=== PATIENT | female | born 1975 | race Caucasian/White ===

== ENCOUNTER → 2017-05-26 | Outpatient (CLI) | payer OTHER ==
[~2017-05-26] MED LIST: CELEBREX 200 M200 M1 PO; HYDROCODON-ACE1 EAC5 PO; HYDROCODONE-AP1 EA11 PO; NORCO 5-325 TA1 EACH PO; WELLBUTRIN SR150 MG PO
--- NOTE | 2017-05-27 08:10 | PAINCON ---
[address] [address] PAIN MANAGEMENT CONSULTATION Name: FILOMENA NEGRON [facility] [id number] Admission: 05/26/17 Attend Phys: Migdalia Brower MD Discharge: Date of : 77 Report #: [id number] THIS REPORT FOR: //name// CC: Mario Brower DATE OF SERVICE: 05/26/2017 FOLLOWUP COMPLAINT: Pain medicine is still helpful. I would like to stop smoking. FOLLOWUP HISTORY: The patient is a 42-year-old female who has been followed in the pain clinic because of chronic pain involving her knees as well as her right hip. 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 She works 3:00 p.m. to 11:00 p.m. She notes that this increased workload has increased some of the pain and discomfort she is experiencing. She found that April was quite problematic. There were a lot of activities where she had to move many chairs and clean up after many programs. She feels that Celebrex is helpful. She feels that she would not be able to do this job without use of the hydrocodone. As you recall, we increased her dose at the last visit. She finds that this has been more efficacious. She continues to have pain and rates it as a 9 today. The weather has changed, it is cold and she has noted worsening of pain and discomfort. Has pain in the right knee and in the right hip. She continues to work hard on weight loss. She has lost another pound over the vacation. Overall, she has lost about 100 pounds. She would like to try to decrease her tobacco use. She has tried in the past. Her concern is that she will increase her weight. It is known that folks oftentimes increase weight after cessation of tobacco use. She knows that the tobacco poses possibility of cancer and pulmonary problems in the future. She is trying to debate whether a 20 pound weight gain would be better than continuing to smoke and encounter the possible complications of chronic tobacco use. PHYSICAL EXAMINATION: VITAL SIGNS: Blood pressure 118/58, height 5 feet 2 inches, weight 216 pounds, BMI is 39, temperature 98.3, heart rate 74, respiratory rate 16. HEENT: Unremarkable. NECK: Nontender. CHEST: Clear, but the patient does cough to clearer throat numerous times during the conversation and her respirations are nonlabored. ABDOMEN: Obese, soft. No complaints. EXTREMITIES: Some soreness in the right knee as well [place] [address] PAIN MANAGEMENT CONSULTATION Name: FILOMENA NEGRON [facility] [id number] Admission: 05/26/17 Attend Phys: Migdalia Brower MD Discharge: Date of : 77 Report #: [id number] IMPRESSION: 1. Left knee and hip pain. History of torn meniscus in her knee. 2. 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 3. Postoperative repair of left knee. Continue physical therapy directives. 4. The patient desires to decrease the use of tobacco. RECOMMENDATIONS: We discussed the use of options for tobacco cessation. At this juncture, we will try Wellbutrin 150 mg 1 p.o. every day. She will take the medication as prescribed. She will call us if she has any concerns about the medication. She will stop it if she has any concerns. She will try to decrease her use of tobacco. We would also described just trying to stop without use of medications. She feels that that might not be a successful, therefore, we will proceed with a trial of Wellbutrin. We will also continue with hydrocodone 7.5 mg 1 p.o. b.i.d. 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 A script for 7.5 mg 1 p.o. t.i.d. has been written. The patient will also continue with Celebrex as a nonsteroidal anti-inflammatory medication 200 mg 1 p.o. every day. She will call us if she has any problems. We would like to thank you for letting us participate in her care. Hope, she continues to improve. <ELECTRONICALLY SIGNED> By: Migdalia Brower MD 05/27/17 0810 1005 [id number]. Mauro Brower MD /SHAWN
== END ==
LOC: M.PC 01:33
DX: G89.29 Other chronic pain (principal); M25.561 Pain in right knee; M25.562 Pain in left knee; M25.551 Pain in right hip; Z98.890 Other specified postprocedural states

== ENCOUNTER → 2017-06-23 | Outpatient (CLI) | payer OTHER ==
--- NOTE | 2017-06-29 08:40 | PAINCON ---
[address] [address] PAIN MANAGEMENT CONSULTATION Name: FILOMENA NEGRON Room: [facility] Diane#: [id number] Admission: 06/23/17 Attend Phys: Migdalia Brower MD Discharge: Date of : 77 Report #: [id number] THIS REPORT FOR: //name// CC: Mario Brower DATE OF SERVICE: 06/23/2017 FOLLOWUP COMPLAINT: Here for medication renewal. FOLLOWUP HISTORY: The patient is a 42-year-old female who has been followed in the pain clinic because of chronic pain involving her left knee and hip. She continues to stay active. She has found a new job. 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 At this juncture, she no longer works at that job. She was unable to get move from an evening position to a daytime position. This can be greater than a year and this was just not working well for her and her family. She now has a new job working at the [employer]. This is closing in her town. She does like to work. She does still find that the job is quite taxing. She is on her feet. They are constantly moving things from one place to the next. She feels that with her medication, she is able to continue to be active. She feels that the Wellbutrin medication, which she started on the last month was helpful. She feels that she has cut down about half of her smoking habit. She feels that the Celebrex continues to be helpful as well. Continues to have pain and discomfort, which is down into both knees as well as in her hip. She has noted that the cold weather that we have had has caused some problems as well. She rates her pain as a 7/10 at this juncture. She would like to continue with this medication. ALLERGIES: AMOXICILLIN. CURRENT MEDICATIONS: Celebrex 200 mg 1 p.o. daily, hydrocodone 10/325 one p.o. t.i.d. PHYSICAL EXAMINATION: VITAL SIGNS: Blood pressure 121/67, heart rate 73, respiratory rate 16, room air saturation 96%. Height 5 feet 2 inches, weight 216 pounds, BMI is 39.6, temperature 98.3. HEENT: Head is atraumatic. Eyes: Equal, round and reactive. Buccal membrane moist. NECK: Without adenopathy or JVD. LUNGS: Clear to auscultation. HEART: Regular rate, normal S1, S2. ABDOMEN: Nontender. MUSCULOSKELETAL: The patient has some pain and discomfort involving her knee on the right side as well as some pain and [place] [address] PAIN MANAGEMENT CONSULTATION Name: FILOMENA NEGRON Room: [facility]#: [id number] Admission: 06/23/17 Attend Phys: Migdalia Brower MD Discharge: Date of : 77 Report #: [id number] IMPRESSION: 1. Left hip and knee pain, which is chronic, history of torn meniscus in her knee. 2. 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 This was secondary to her inability to get to a day shift job. 3. Decreasing use of tobacco with Wellbutrin. She has had no side effects from this, but feels that this has decreased her desire for tobacco. 4. Postoperative repair of knee, continue physical therapy. 5. Depressive disorder, asthma and bronchitis history. RECOMMENDATIONS: We discussed treatment options with the patient. The patient will call us if she has any problems with her medications. A script for 2 months of hydrocodone as well as Wellbutrin have been written. The patient will also continue with Celebrex. She will stop this medication if she notes any GI problems. We would like to thank you for letting us participate in her care. We hope she continues to improve. <ELECTRONICALLY SIGNED> By: Migdalia Brower MD 06/29/17 0840 1421 [id number]. Mauro Brower MD /SHAWN
== END ==
LOC: M.PC 01:43
DX: G89.29 Other chronic pain (principal); M25.562 Pain in left knee; M25.552 Pain in left hip; F17.200 Nicotine dependence, unspecified, uncomplicated; F32.9 Major depressive disorder, single episode, unspecified; Z98.890 Other specified postprocedural states; Z87.09 Personal history of other diseases of the respiratory system

== ENCOUNTER → 2017-11-10 | Outpatient (CLI) | payer OTHER ==
--- NOTE | 2017-11-24 15:18 | PAINCON ---
[address] [address] PAIN MANAGEMENT CONSULTATION Name: FILOMENA NEGRON Room: [facility] Contreras#: [id number] Admission: 11/10/17 Attend Phys: Migdalia Brower MD Discharge: Date of : 77 Report #: [id number] THIS REPORT FOR: //name// CC: Mario Brower DATE OF SERVICE: 11/10/2017 FOLLOWUP COMPLAINT: Here for medication renewal, going on a trip vacation at this point, wondering if I could get a few more pain pills for this month. FOLLOWUP HISTORY: The patient is a 42-year-old female who has been followed in the pain clinic. As you recall, she has problems with her knees. At her young age, her surgeons have requested that she wait until she is about 51 before considering surgery on her knees. Left side is worse than right. Also, has bilateral hip pain. She recently fell. She felt like her knee gave out. It sometimes locks up on the left side. Foot feels that her medications are continued to be helpful. 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 She feels overall that things have gone as well as one could expect. She had no complications with her medications. Feels that the medications continue to be helpful. Feels that her sensorium is clear. Rates her pain as a 7/10 today. Feels that Wellbutrin and ibuprofen are helpful. She continues to try to cut down on cigarette smoking and is at 1-1/2 pack per day. ALLERGIES: PENICILLIN. CURRENT MEDICATIONS: Celebrex 200 mg daily, hydrocodone 10/325 one p.o. t.i.d., Wellbutrin 150 mg daily. PAIN CLINIC ASSESSMENT: 1. Osteoarthritis. The patient has osteoarthritis involving her knees as well as in her hip. 2. Height 5 feet 3 inches, weight 217 pounds, BMI is 38. 3. Vital signs: Blood pressure 120/81, heart rate 70, respiratory rate 16, room air saturation 97%, temperature 98.2. Pain intensity 12/06. 4. Fall history: The patient recently fell secondary to her knee giving out. 5. Blood thinners. The patient is not on a blood thinning medication. 6. Hypertension. The patient is not being treated for hypertension. 7. Opioids, greater than 6 weeks. The patient is on an opioid contract with the pain clinic gets her [facility]. 8. Risk assessment tool. 9. Functional assessment tool. 10. Recreational drug use. The patient denies use of recreational drugs. 11. Tobacco: The patient smokes 1-1/2 pack of cigarettes per day. 12. Alcohol: The patient [place] [address] PAIN MANAGEMENT CONSULTATION Name: FILOMENA NEGRON Room: [facility]#: [id number] Admission: 11/10/17 Attend Phys: iMgdalia Brower MD Discharge: Date of : 77 Report #: [id number] PHYSICAL EXAMINATION: GENERAL: The patient is a well-developed, well-nourished white female. Appears her stated age. She is alert and oriented x 3. HEENT: Sclerae nonicteric. Hearing within normal limits. NECK: Without JVD, bruits or adenopathy. LUNGS: Clear to auscultation without crackles or rales. ABDOMEN: Protuberant. MUSCULOSKELETAL: General without significant scoliosis, kyphosis or lordosis. Upper muscle strength is judged to be 5/5 for the major muscle groups of the upper extremity without sensory changes. LOWER EXTREMITY: The patient has pain and discomfort in her left and right knee. Also, has pain and discomfort in her hip. Muscle strength is judged to be 5/5. IMPRESSION: 1. Chronic right and left knee pain. 2. Bilateral hip pain. 3. Use of tobacco. The patient states that with her Wellbutrin she continues to try and decrease her use of tobacco. 4. Depression. 5. Asthma and bronchitis history. RECOMMENDATIONS: We discussed treatment options with the patient. Risks and benefits of opioid therapy and Wellbutrin in conjunction with ibuprofen continue to be helpful. She would like to continue with her current medication regimen. She states that she is about to go on vacation for a while. She is wondering if she could have an additional number of hydrocodone medications to help compensate for pain and discomfort with an additional walking and activity she will incur. She is aware that we will do this for just 1 month. We have written for the patient 120 mg of hydrocodone 10/125 for this month. She will take them 1 q.4-6 hours p.r.n. for pain. We will continue to allow her use of tobacco. We would like to thank you for letting us participate in her care. We hope she continues to improve. <ELECTRONICALLY SIGNED> By: Migdalia Brower MD 11/24/17 1518 0831 [id number]. Mauro Brower MD /nt
== END ==
LOC: M.PC 01:03
DX: M25.562 Pain in left knee (principal); M25.561 Pain in right knee; G89.29 Other chronic pain; M25.552 Pain in left hip; M25.551 Pain in right hip; F32.9 Major depressive disorder, single episode, unspecified; F17.200 Nicotine dependence, unspecified, uncomplicated

== ENCOUNTER → 2018-01-05 | Outpatient (CLI) | payer OTHER ==
--- NOTE | 2018-01-13 08:37 | PAINCON ---
[facility] [address] [place] [address] PAIN MANAGEMENT CONSULTATION Name: FILOMENA NEGRON Room: [facility] Diane#: [id number] Admission: 01/05/18 Attend Phys: Migdalia Brower MD Discharge: Date of : 77 Report #: [id number] THIS REPORT FOR: //name// CC: Mario Brower DATE OF SERVICE: 01/05/2018 FOLLOWUP COMPLAINT: Here for medication renewal. My trip to [place], [place], was really good." FOLLOWUP HISTORY: The patient is a 42-year-old female who has been followed in the pain clinic because of chronic problems. As you recall, she has knee problems. She and her family went on a journey with her holiness. They went to [place]. 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 This was house of a performing artist who had many travels. They were able to accomplish her goal. She feels that things went really well. The increase hydrocodone for that one month was quite beneficial. She has continued to have pain in her knees, right greater than left. Also, notes some right hip pain. Finds that her medications are tolerable. She has had no complications from the use of her medications. 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 Overall, things are going reasonably well and she would like to continue with her medications. Continues to try to decrease her smoking. ALLERGIES: PENICILLIN. CURRENT MEDICATIONS: Celebrex 200 mg daily, hydrocodone 10/325 one p.o. t.i.d. and Wellbutrin 150 mg daily. PAIN CLINIC ASSESSMENT: 1. Osteoarthritis.: The patient has osteoarthritis involving her knees as well as her hip. 2. Height 5 feet 3 inches, weight 270 pounds, BMI is 39. 3. Vital signs: Blood pressure 134/75, heart rate 78, respiratory rate 16, room air saturation 96% and temperature 98.1. 4. Pain intensity score 6/10. 5. Fall risk. The patient has not fallen in the last month. 6. Blood thinner. The patient is not on a blood thinning medication. 7. History of hypertension. The patient is not being treated for hypertension. 8. Opioid therapy greater than 6 weeks. The patient receives her medications from [facility], the pain clinic. 9. Assessment tool, low for opioid use. 10. Functional assessment tool. 11. Recreational drug use. The patient denies use of recreational drugs. 12. Tobacco: The patient denies use of tobacco. 13. Alcohol: The patient [place] [address] PAIN MANAGEMENT CONSULTATION Name: MIGDALIAFILOMENA GALLAGHER Room: [facility]#: [id number] Admission: 01/05/18 Attend Phys: Migdalia Brower MD Discharge: Date of : 77 Report #: [id number] PHYSICAL EXAMINATION: GENERAL: The patient is a well-developed, well-nourished white female. Slightly obese. She appears her stated age. She is alert and oriented x 3. HEENT: Normocephalic, atraumatic. Extraocular eye muscles intact. Sclerae nonicteric. Hearing is within normal limits. Mucous membranes are moist. NECK: Without JVD, bruits, or adenopathy. LUNGS: Clear to auscultation without crackles, some congestion. ABDOMEN: Protuberant without adenopathy or organomegaly. MUSCULOSKELETAL: Generally without significant scoliosis, kyphosis or lordosis. Upper muscle strength is judged to be 5/5 with symmetry. No sensory changes are noted. Low back generally unremarkable. Lower extremities, the patient has pain and discomfort in her knees, left and right as well as in her right hip. Her muscle strength is 5/5. Note some increased discomfort when prolonged standing and walking. IMPRESSION: 1. Chronic right and left knee pain. 2. Chronic bilateral hip pain. 4. Use of tobacco. The patient continues with Wellbutrin and tries to decrease her tobacco use. 5. Depression. 6. Asthma/bronchitis history. RECOMMENDATIONS: We discussed treatment options with the patient. She finds her medications are helpful. She would like to continue with their use. She is aware that opioid use on a long-term basis can cause addiction in some patients. Also, prolonged use of medication can cause decreased effectiveness secondary to development of tolerance. She would like to have her medications renewed. Notes that continues to have greater than 50% improvement with use of her medications. A script for her medications of hydrocodone 10/325 has been written, Wellbutrin 150 mg, Celebrex, have all been provided for the patient for the next 2 months. We would like to thank you for letting us participate in her care. We hope she continues to improve. <ELECTRONICALLY SIGNED> By: Migdalia Brower MD 01/13/18 0837 0841 [id number]. Mauro Brower MD /kelvin
== END ==
LOC: M.PC 03:26
DX: M25.561 Pain in right knee (principal); M25.562 Pain in left knee; G89.29 Other chronic pain; M25.551 Pain in right hip; M25.552 Pain in left hip; J45.909 Unspecified asthma, uncomplicated; F32.9 Major depressive disorder, single episode, unspecified; F17.200 Nicotine dependence, unspecified, uncomplicated; Z79.899 Other long term (current) drug therapy

== ENCOUNTER → 2018-03-02 | Outpatient (CLI) | payer OTHER ==
--- NOTE | 2018-04-12 15:49 | PAINCON ---
[facility] [address] [place] [address] PAIN MANAGEMENT CONSULTATION Name: FILOMENA NEGRON Room: [facility] MichelleArgentinaSuzannaArgentina#: [id number] Admission: 03/02/18 Attend Phys: Migdalia Brower MD Discharge: Date of : 77 Report #: [id number] THIS REPORT FOR: //name// CC: Sterling Brower DATE OF SERVICE: 03/02/2018 FOLLOWUP COMPLAINT: Here for medication renewal. FOLLOWUP HISTORY: The patient is a 42-year-old female who has been followed in the Pain Clinic. As you recall, she has continued to have some pain and discomfort with her knees. She returns today for renewal of her medications. The patient notes that the right knee is more problematic than the left. Also, has some pain in her right hip. She is experiencing pain in her right foot, which has caused her to limp. Rates her pain as an 8/10. Notes that her pain is exacerbated with "temperatures." Medication can be beneficial. Has not fallen or had any new complaints since we saw her last. The patient was walking in the dark. She stepped and go for catherine and stressed her right ankle. A script for the patient's hydrocodone, Wellbutrin and Celebrex have been written. ALLERGIES: PENICILLIN. CURRENT MEDICATIONS: Celebrex 200 mg, hydrocodone 10/325 one p.o. t.i.d. and Wellbutrin 150 mg daily. PAIN CLINIC ASSESSMENT/PQRS: 1. Osteoarthritis. The patient has osteoarthritis involving her knees as well as her hip. 2. Height 5 feet 3 inches, weight 216 pounds, BMI is 39. 3. Vital signs: Blood pressure 142/83, heart rate 61, respiratory rate 16, room air saturation 98%. 4. Pain intensity score is 8/10. 5. Fall risk. The patient has not fallen in the last month. 6. Blood thinner. The patient is not on a blood thinning medication. 7. History of hypertension. The patient is not being treated for hypertension. 8. Opioid therapy greater than 6 weeks. The [facility]. 9. Risk assessment tool, low for opioid use. 10. Functional assessment tool. 11. Recreational drug use. The patient denies use of recreational drugs. 12. Tobacco: The patient denies use of tobacco. 13. Alcohol: The patient denies use of alcoholic beverages on a regular basis. PHYSICAL EXAMINATION: GENERAL: The patient is a well-developed, well-[place] [address] PAIN MANAGEMENT CONSULTATION Name: MIGDALIAFILOMENA Alyson Room: [facility]#: [id number] Admission: 03/02/18 Attend Phys: Migdalia Brower MD Discharge: Date of : 77 Report #: [id number] stated age. Slightly obese. She is alert and oriented x 3. HEENT: Normocephalic, atraumatic. Extraocular eye muscles intact. Sclerae nonicteric. Hearing is within normal limits. Mucous membranes are moist. NECK: Without JVD or bruits. No adenopathy. LUNGS: Clear to auscultation without crackles or congestion. ABDOMEN: Protuberant without adenopathy or organomegaly. Bowel sounds present. MUSCULOSKELETAL: Generally without significant scoliosis, kyphosis or lordosis. Upper extremity muscle strength appears to be 5/5 with symmetry. No sensory changes. Lower back is slightly painful. Lower extremity, the patient has some pain and discomfort in her knees bilaterally, left greater than right. The patient has some right hip discomfort. Muscle strength judged to be 5/5 for the major muscle groups. The patient has walked with a slight limp involving her right foot. IMPRESSION: 1. Chronic right knee and left knee pain. 2. Chronic bilateral hip pain. 3. Use of tobacco. The patient continues to work toward decreasing tobacco use. 4. Depression. 5. Asthma/bronchitis history. RECOMMENDATIONS: We discussed treatment options with the patient. Risks and benefits of opioid medication were discussed. Possible complications of long-term use have been reviewed. They include dependence as well as the possibility of tolerance with prolonged use. The patient feels that these medications were helpful. They enable her to continue to work and be gainfully employed. She will call us if she has any concerns. We would like to thank you for letting us participate in her care. The patient will follow up in 2 months. <ELECTRONICALLY SIGNED> By: Migdalia Brower MD 04/12/18 1549 [id number]. Mauro Brower MD /kelvin
== END ==
LOC: M.PC 04:49
DX: M25.561 Pain in right knee (principal); M25.562 Pain in left knee

== ENCOUNTER → 2018-06-20 | Outpatient (CLI) | payer OTHER ==
--- NOTE | ~2018-06-20 | PAINCON ---
[facility] [address] [place] [address] PAIN MANAGEMENT CONSULTATION Name: FILOMENA NEGRON Room: [facility] MichelleSuzannaArgentina#: [id number] Admission: 06/20/18 Attend Phys: Migdalia Brower MD Discharge: Date of : 77 Report #: [id number] THIS REPORT FOR: //name// CC: Sterling White DO, RESIDENT Najma Brower DATE OF SERVICE: 06/20/2018 CHIEF COMPLAINT: Here for medication renewal, " I have stress fracture in my foot and plantar fasciitis on the right side." HISTORY: The patient is a 43-year-old female who has been followed in the Pain Clinic. As you recall, she has problems with her knees. She has had more pain and discomfort involving her right foot. States that she has been walking with a limp that involves in her right foot. Has been found to have a stress fracture or possible plantar fasciitis. She and her family have moved. Continues to work on a daily basis. Works on a hard surface. Feels that, that exacerbates her pain. She has not fallen in the last 3 months. She feels that her medications of hydrocodone continued to be beneficial. She is able to stay gainfully employed. MEDICATIONS: Celebrex 200 mg, hydrocodone 10/325 one p.o. t.i.d., and Wellbutrin 150 mg daily. PAIN CLINIC ASSESSMENT/PQRS: 1. Osteoarthritis. The patient has some arthritic changes involving her knees as well as her hip. The patient is not being treated for rheumatoid arthritis. 2. Height 5 feet 3 inches, weight 227 pounds, BMI is 41.5. 3. Vital signs: Blood pressure 126/80, heart rate 72, respiratory rate 16, room air saturation 97%, and temperature 98.1. 4. Pain intensity 8/10. 5. Fall history: The patient has not fallen in the last 3 months. 6. Blood thinner. The patient is not on a blood thinner medication. 7. Hypertension. The patient is not being treated for hypertension. 8. Opioids greater than 6 weeks. The patient receives her medications [facility]. 9. Risk assessment tool, low for opioid use. 10. Functional assessment tool. 11. Recreational drug use. The patient denies use of recreational drugs. 12. Tobacco: The patient smokes one-half pack of cigarettes per day. 13. Alcohol: The patient denies use of alcoholic beverages on a regular basis. PHYSICAL EXAMINATION: GENERAL: The patient is a well-developed, well-nourished, somewhat obese white female, appears her stated age. She is alert and oriented x 3[place] [address] PAIN MANAGEMENT CONSULTATION Name: FILOMENA NEGRON Room: [facility]#: [id number] Admission: 06/20/18 Attend Phys: Migdalia Brower MD Discharge: Date of : 77 Report #: [id number] appropriate. Speech is fluent. HEENT: Normocephalic, atraumatic. Extraocular eye muscles intact. Sclerae nonicteric. Mucous membranes are moist. Hearing is within normal limits. NECK: Without adenopathy or JVD. LUNGS: Clear to auscultation without rhonchi or rales. ABDOMEN: Protuberant without organomegaly. Bowel sounds are present. EXTREMITIES: Upper extremity muscle strength 5/5. The patient has pain in her knees bilaterally. Notes some pain and discomfort in the right ankle. Has pain in the plantar area of her right foot. She has clinical findings consistent with plantar fasciitis. The patient does walk with a limp involving her right foot. IMPRESSION: 1. Chronic right knee and left knee pain. 2. Chronic bilateral hip pain. 3. Plantar fasciitis/right foot stress sprain. 4. Depression. 5. Asthma/bronchitis history. RECOMMENDATIONS: We discussed treatment options with the patient. At this juncture, we will continue with her medications. She feels her medications are helpful. She is able to remain gainfully employed because of this. She is going through of the tougher times of the year for them. 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 Because of this increased activity, she would like to have her hydrocodone increased to 4 tablets daily. We will do for this month. She will follow up in the future as needed. She will call us if she has any concerns. We would like to thank you for letting us participate in her care. We hope she continues to improve. By: [id number]. Mauro Brower MD /nt
== END ==
LOC: M.PC 04-27 03:46
DX: M25.562 Pain in left knee (principal); M25.561 Pain in right knee; G89.29 Other chronic pain; M25.551 Pain in right hip; M25.552 Pain in left hip; F32.9 Major depressive disorder, single episode, unspecified; J45.909 Unspecified asthma, uncomplicated; M72.2 Plantar fascial fibromatosis

== ENCOUNTER → 2018-08-15 | Outpatient (CLI) | payer OTHER ==
--- NOTE | ~2018-08-15 | PAINCON ---
[address] [address] PAIN MANAGEMENT CONSULTATION Name: FILOMENA NEGRON Room: [facility] MichelleRadha#: [id number] Admission: 08/15/18 Attend Phys: Migdalia Brower MD Discharge: Date of : 77 Report #: [id number] THIS REPORT FOR: //name// CC: Sterling Brower DATE OF SERVICE: 08/15/2018 CHIEF COMPLAINT: Here for medication renewal. HISTORY: Still having left foot pain, because of plantar fasciitis and left knee pain. HISTORY OF PRESENT ILLNESS: The patient is a 43-year-old female who has been followed in the pain clinic because of chronic pain. Has right foot pain as well as left knee pain. The patient is continuing in physical therapy for treatment of plantar fasciitis. Overall, she has had no significant change in her pain. Continues to find that the pain is problematic and rates it as a 7/10. She has recently been plagued with bronchitis. She has had a right ear infection as well as the sinus infection. She is continuing to decrease her cigarette use. She is at one-half a pack per day at this juncture. States that she will go down to about one-third of a pack per day in the next few weeks. She feels that the Wellbutrin is helping. She has had no complications from her medications. Notes that the cold, temperatures, walking, sitting and standing are problematic. Noticed increased pain during the holiday. She works in a [employer] office. Next time another cedillo will come will be for graduation. 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 ALLERGIES: AMOXICILLIN. CURRENT MEDICATIONS: Celebrex 200 mg, hydrocodone 10/325 one p.o. t.i.d., Wellbutrin 150 mg daily. PAIN CLINIC ASSESSMENT/PQRS: 1. Osteoarthritis. The patient does have some osteoarthritic changes in her knees as well as her hip. Left knee is most problematic. The patient is not being treated for rheumatoid arthritis. 2. Height 5 feet 3 inches, weight 232 pounds, BMI is 41.3. 3. Vital signs: Blood pressure 137/88, heart rate 76, respiratory rate 16, room air saturation is 97%, temperature 98.1. 4. Pain intensity 7/10. 5. Fall risk: The patient did fall. States that it was because she is clumsy. States that she has tripped and because of the weakness in her knees, she was unable to stay up and fell. 6. She did not seek medical attention [place] [address] PAIN MANAGEMENT CONSULTATION Name: FILOMENA NEGRON Room: [facility]#: [id number] Admission: 08/15/18 Attend Phys: Migdalia Brower MD Discharge: Date of : 77 Report #: [id number] 7. Blood thinner. The patient is not on a blood thinning medication. 8. Hypertension. The patient is not being treated for hypertension. 9. Opioid greater than 6 weeks. The patient [facility] her [facility]. 10. Risk assessment tool low for opioid use. 11. Functional assessment tool. 12. Recreational drug use. The patient denies use of recreational drugs. 13. Tobacco: The patient smokes and continues to decrease her smoking. She is a one-half pack of cigarettes per day and now is going to transition to one-third a pack of cigarettes per day. 14. Alcohol: The patient denies use of alcoholic beverages on a regular basis. PHYSICAL EXAMINATION: GENERAL: The patient is a well-developed, well-nourished white female. Appears her stated age. She is alert and oriented x 3. Her affect is appropriate. Speech is fluent. HEENT: Normocephalic, atraumatic. Extraocular eye muscles intact. Sclerae nonicteric. Mucous membranes are moist. NECK: Without adenopathy or JVD. HEART: Regular rate. ABDOMEN: Nontender. Bowel sounds present. EXTREMITIES: Upper extremity muscle strength is judged to be 5/5 for the major muscle groups. Lower extremity muscle strength is judged to be 5-/5 for the lower extremity. Has pain in her left and right knee. Has some discomfort in the right foot as a result of plantar fasciitis. Walks with a slight antalgic gait initially when walking because of the plantar fasciitis pain. IMPRESSION: 1. Chronic right knee and left knee pain. 2. Chronic bilateral hip pain. 3. Plantar fasciitis, right foot. 4. Depression. 5. Asthma/bronchitis. RECOMMENDATIONS: We discussed treatment options with the patient. We will continue with her current medical regimen. A script for her medications of hydrocodone and Celebrex have been rewritten. The patient will also continue with Celebrex. She feels that this medication is providing benefit in helping her decrease her use of tobacco. She has had no complications from her medications. A script for the medication have been renewed. The patient will follow up in [address] [address] PAIN MANAGEMENT CONSULTATION Name: FILOMENA NEGRON Room: [facility]#: [id number] Admission: 08/15/18 Attend Phys: Migdalia Brower MD Discharge: Date of : 77 Report #: [id number] We would like to thank you for letting us participate in her care. We hope she continues to improve. By: [id number]. Mauro Brower MD /nt
== END ==
LOC: M.PC 04:56
DX: M72.2 Plantar fascial fibromatosis (principal); M17.0 Bilateral primary osteoarthritis of knee; M16.0 Bilateral primary osteoarthritis of hip; G89.29 Other chronic pain; J45.21 Mild intermittent asthma with (acute) exacerbation; F17.210 Nicotine dependence, cigarettes, uncomplicated; F32.9 Major depressive disorder, single episode, unspecified; Z88.1 Allergy status to other antibiotic agents; Z79.899 Other long term (current) drug therapy; Z79.891 Long term (current) use of opiate analgesic

== ENCOUNTER → 2018-10-24 | Outpatient (CLI) | payer OTHER ==
--- NOTE | 2018-10-26 01:33 | PAINCON ---
[address] [address] PAIN MANAGEMENT CONSULTATION Name: FILOMENA NEGRON Room: [facility].#: [id number] Admission: 10/24/18 Attend Phys: Migdalia Brower MD Discharge: Date of : 77 Report #: [id number] THIS REPORT FOR: //name// CC: Sterling Brower DATE OF SERVICE: 10/24/2018 CHIEF COMPLAINT: "Here for medication renewal and I am still having [id number] pain in my knee." HISTORY: The patient is a 43-year-old female who has been seen in the Pain Clinic in the past because of chronic pain involving her left knee. She also has some right foot pain. She needs to have a left knee replacement. Her physicians have told her she is too young. She also has some pain in the foot. She suffered from plantar fasciitis. She continues to have pain on the right foot. She has been hospitalized in the past few weeks because of bronchitis. She has run out of her medications and has returned for medication renewal today. She rates her pain as a 7/10. She feels that the [place], Wellbutrin, and Celebrex medications are helpful. They provide about 50% improvement in her pain score overall. She continues to smoke cigarettes and smokes about one-quarter pack of cigarettes per day. ALLERGIES: AMOXICILLIN. CURRENT MEDICATIONS: Celebrex 200 mg, hydrocodone 10/325 one p.o. t.i.d., Wellbutrin 150 mg daily. PAIN CLINIC ASSESSMENT AND PQRS: 1. Osteoarthritis: The patient has osteoarthritic changes involving her knees, particularly her left knee is problematic. She has some pain in her hip. She is not being treated for rheumatoid arthritis. 2. Height 5 feet 3 inches, weight 232 pounds, BMI is 40.9. 3. Vital signs: Blood pressure 138/96, heart rate 69, respiratory rate 16, room air saturation 98%, temperature 98.3. 4. Pain intensity: 7/10. 5. Fall history: The patient has not fallen in the last 3 months. 6. Blood thinner: The patient is not on a blood thinning medication. 7. Hypertension: The patient is not being treated for hypertension. 8. Opioids greater than 6 weeks: The patient receives her medication [facility]. 9. Risk assessment tool: Low for opioid use. 10. Functional assessment tool. 11. Recreational drug use: The patient denies use of recreational drugs. 12. Tobacco: The patient smokes cigarettes and has continued to smoke. We have discussed the benefits of smoking cessation. [place] [address] PAIN MANAGEMENT CONSULTATION Name: FILOMENA NEGRON Room: [facility]#: [id number] Admission: 10/24/18 Attend Phys: Migdalia Brower MD Discharge: Date of : 77 Report #: [id number] one-half pack of cigarettes per day to one-quarter pack of cigarettes per day. 13. Alcohol: The patient denies use of alcoholic beverages on a regular basis. PHYSICAL EXAMINATION: GENERAL: The patient is a well-developed, well-nourished, white female, slightly obese. She appears her stated age. She is alert and oriented x 3. Her affect is appropriate. Speech is fluent. HEENT: Normocephalic, atraumatic. Extraocular eye muscles intact. Sclerae nonicteric. Mucous membranes are moist. NECK: Without adenopathy or JVD. HEART: Regular rate, S1 and S2. ABDOMEN: Nontender. Bowel sounds present. MUSCULOSKELETAL: Upper extremity muscle strength is judged to be 5/5 for the major muscle groups. The patient has some decreased strength in the lower extremity with pain rated at 5/5 for the left lower extremity. She has some pain in the right knee as well. She notes some discomfort in her right foot because of continued plantar fasciitis. The patient continues to walk slowly with a cautious gait. IMPRESSION: 1. Chronic right knee and left knee pain. 2. Chronic bilateral hip pain. 3. Plantar fasciitis, right foot. 4. Depression. 5. Asthma/bronchitis. RECOMMENDATIONS: We discussed treatment options with the patient. The patient has been in the hospital because of bronchitis. Again, we discussed the benefits of smoking cessation. She was on an elevated amount of [place] 10/325, a total of 120 for a month. This was while she was having surgery on her foot. We have now reestablished the patient's norm of 10/325 one p.o. t.i.d., a total of 90 tablets. A total of 2 months of medications have been provided. The patient will also continue with her Wellbutrin 1 tablet daily 150 mg as well as Celebrex 200 mg a day. She does not have any problems with her stomach. Things are going reasonably well with her and her sons. Her youngest son is thinking about going to the , he would like to become a marine. Her oldest son is in the army. Overall, things are going reasonably well. She will call us if she has any concerns. We did discuss the reasons for prolonging as long as possible with the replacement of her knees. Discussed the possibility of the knee replacement wearing out before we would like it to because of her young and active age. <ELECTRONICALLY SIGNED> By: Migdalia Brower MD 10/26/18 [id number]. Mauro Brower MD /nt
== END ==
LOC: M.PC 04:54
DX: M72.2 Plantar fascial fibromatosis (principal); G89.29 Other chronic pain; M25.562 Pain in left knee; M25.561 Pain in right knee; M25.551 Pain in right hip; M25.552 Pain in left hip; F32.9 Major depressive disorder, single episode, unspecified; J45.909 Unspecified asthma, uncomplicated; Z79.899 Other long term (current) drug therapy

== ENCOUNTER → 2018-12-19 | Outpatient (CLI) | payer OTHER ==
--- NOTE | ~2018-12-19 | PAINCON ---
[address] [address] PAIN MANAGEMENT CONSULTATION Name: FILOMENA NEGRON [facility] [id number] Admission: 12/19/18 Attend Phys: Migdalia Brower MD Discharge: Date of : 77 Report #: [id number] THIS REPORT FOR: //name// CC: Sterling White DO, RESIDENT Migdalia Brower DATE OF SERVICE: 12/19/2018 CHIEF COMPLAINT: Chronic knee pain and has been told that I have 3 herniated disks in my back. HISTORY: The patient is a 43-year-old female who has been followed in the Pain Clinic because of chronic pain. As you recall, she has some left knee problems. She has found that the current medical regimen is helpful. She is still having problem with jojb-wi-shat pain. She has had right foot discomfort as well. She needs to have a left knee replacement. Because of her young age, she has not undergone surgery at this point. She has had plantar fasciitis. She now has some problems with her back. She did trip and fell. She went to the hospital. She states that she has been diagnosed with 3 herniated disks in her back. She has a family member who is a physical therapist. They have given her exercises to work on her core. The hope is that she continued to improve and not have need for back surgery. She is continuing to work at her job. 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 The activity at the [facility] is slow at this point. Overall, things are going reasonably well. She rates her pain as a 6/10. She has returned today for renewal of her medication. Continues to try to decrease smoking. Notes that her pain increases with activity, sitting and standing. ALLERGIES: AMOXICILLIN. CURRENT MEDICATIONS: Celebrex 200 mg, hydrocodone 10/325 one p.o. t.i.d., Wellbutrin 150 mg daily. PAIN CLINIC ASSESSMENT/PQRS: 1. Osteoarthritis. The patient has osteoarthritic changes involving her knees, particularly left knee, which is most problematic. Has some problem in her hip. She is not being treated for rheumatoid arthritis. 2. Height 5 feet 3, weight 235 pounds, BMI is 41.8. 3. Vital Signs: Blood pressure 148/82, heart rate 75, respiratory rate 16, room air saturation 95%, temperature is 98.2. 4. Pain intensity, 6/10. 5. Fall history: The patient did fall and went to the Emergency Room. 6. Blood thinner. The patient is not on a blood thinning medication. 7. Hypertension. The patient is not being treated for hypertension. 8. Opioids greater than 6 weeks. The patient [facility] [place] [address] PAIN MANAGEMENT CONSULTATION Name: FILOMENA NEGRON Room: [facility]#: [id number] Admission: 12/19/18 Attend Phys: Migdalia Brower MD Discharge: Date of : 77 Report #: [id number] 9. Risk assessment tool, low for opioid use. 10. Functional assessment tool. 11. Recreational drug use. The patient denies use of recreational drugs. 12. Tobacco: The patient smokes cigarettes 1 quarter pack a day. Continues to try to decrease her smoking use. 13. Alcohol: The patient denies use of alcoholic beverages other than rare occasion. PHYSICAL EXAMINATION: GENERAL: The patient is a well-developed, well-nourished white female. Appears her stated age. She is alert, oriented x 3. Her affect is appropriate. Speech is fluent. HEENT: Normocephalic, atraumatic. Extraocular eye muscles intact. Sclerae nonicteric. Mucous membranes are moist. NECK: Without adenopathy or JVD. HEART: Regular rate. S1, S2. ABDOMEN: Nontender. Bowel sounds present. MUSCULOSKELETAL: Upper extremity muscle strength 5/5 for the major muscle groups in the upper extremity. Lower extremity, 5/5 for the lower extremity. The patient has pain and discomfort involving her knees, right as well as the left knee. Had some discomfort of plantar fasciitis. Walks with a slow gait. IMPRESSION: 1. Chronic right knee and left knee pain. 2. Chronic bilateral hip pain. 3. Plantar fasciitis, right foot. 4. Depression. 5. Asthma/bronchitis. RECOMMENDATIONS: We discussed treatment options with the patient. At this juncture, we will continue with her medication. She feels that the hydrocodone medication is helpful. It enables her to remain gainfully employed. She has less pain and discomfort. She is now trying to increase her activity secondary to the revelation that she has 3 herniated disks in her back. She will also continue to be mindful of her medications. She has young children. Keeps her medications in a guarded area. She is aware that opioid medications can be problematic. She does not feel a problem at this juncture. She is also aware that they can become less effective over time secondary to tolerance. A renewal of her medications has been provided. She will call us if she has any concerns. We would like to thank you for letting us participate in her care. We hope she continues to improve. By: [id number]. MD marlen Juarez
== END ==
LOC: M.PC 05:19
DX: M25.561 Pain in right knee (principal); M25.562 Pain in left knee; G89.29 Other chronic pain; J45.909 Unspecified asthma, uncomplicated; M72.2 Plantar fascial fibromatosis; Z88.1 Allergy status to other antibiotic agents; Z79.899 Other long term (current) drug therapy; Z79.891 Long term (current) use of opiate analgesic